=== PATIENT | female | born 1965 | race Caucasian/White ===

== ENCOUNTER 2023-06-26 19:05 | Emergency (ER) | payer BC, SELFPAY ==
--- NOTE | 2023-06-26 19:11 | ED.URI ---
HPI - URI/Sore Throat General Chief Complaint: Upper Respiratory Infection Stated Complaint: Sinus/Sore Throat Time Seen by Provider: 06/26/23 19:11 Source: patient and RN notes reviewed Mode of arrival: ambulatory Limitations: no limitations History of Present Illness HPI Narrative: 57 y/o female presented for c/o nonproductive cough for 5 days. States at onset of symptoms, she had sinus congestion and drainage which has since 'moved to the chest.' Reports cough is worse at night and heard crackles and wheezing. Took benzonatate from previous prescription and sleeping pill last night due to the cough. Denies sob, chest pain, palpitations, lethargy or fever. Smokes 1/2ppd. Has not tested for covid. MD elicited complaint: cough Related Data Allergies Allergy/AdvReac Type Severity Reaction Status Date / Time codeine Allergy Unknown Other Verified 06/26/23 19:11 Penicillins Allergy Unknown Other Verified 06/26/23 19:11 Sulfa (Sulfonamide Allergy Unknown Other Verified 06/26/23 19:11 Antibiotics) NFA Allergy Unknown Other Uncoded 06/26/23 19:11 Review of Systems Review of Systems: CONSTITUTIONAL: denies malaise, chills, sweats, fever EYES: Denies visual changes, redness, or discharge ENT: Denies rhinorrhea, congestion, sinus pain, otalgia, sore throat CARDIOVASCULAR: Denies chest pain, palpitations, edema RESPIRATORY: Reports cough Denies dyspnea GASTROINTESTINAL: Denies abdominal pain, nausea, vomiting, diarrhea SKIN: Denies rash or itching MUSCULOSKELETAL: Denies myalgia NEUROLOGIC: Denies headache PMFSH Social History Social History Smoking status: Current every day smoker Second hand tobacco smoke exposure: Yes Alcohol intake: never Exam Narrative: GENERAL: well-appearing HEAD: Normocephalic EYES: PERRLA, conjunctivae clear ENT: Mucous membranes moist. TM pearly soto with dull light reflex bilaterally; no tragal tenderness. Oropharynx erythematous without lesions or exudate, no drooling, no hoarseness, no trismus, uvula midline. No tripod positioning, muffled voice, soft palate or pharyngeal wall bulging NECK: Supple. No lymphadenopathy CHEST: Clear to auscultation, breath sounds equal. No wheezing, rhonchi, rales, or stridor. No respiratory distress, speaks in full sentences. Talkative. HEART: Regular rate and rhythm. SKIN: Warm, dry, no rash. NEURO: Alert and oriented x3. PSYCH: Normal mood and affect. Course Course Emergency Course: Patient is aware of diagnosis, understands and agrees to treatment plan. Anticipatory guidance given. Patient agrees to follow-up as directed and is aware of reasons to seek care at the emergency department. Portions of this record may have been created with voice recognition software Level of Care: Express Care Visit Vital Signs Vital signs: reviewed MDM - URI/Sore Throat MDM Narrative Medical decision making narrative: Discussed physical exam findings. Advised supportive measures and signs/symptoms to go to the ER. Pt is appropriate for outpt treatment and f/u. Differential Diagnosis Differential diagnosis: Likely upper respiratory infection, sinusitis, viral infection and bronchitis Discharge Plan Discharge Clinical Impression: Bronchitis Patient Disposition: Home, Self-Care Condition: Stable Instructions: Antibiotic Form, Acute Bronchitis (ED) Additional Instructions: Acute bronchitis can be contagious because it is usually caused by infection with a virus or bacteria. Take medication as directed For symptoms: Flonase spray and Zyrtec (or Claritin/Krista) if you have sinus congestion over the counter Cough syrup may cause drowsiness; avoid driving or take it at night time. Tylenol 1000mg every 8 hours as needed for pain benzonatate as needed for cough albuterol inhaler as needed shortness of breath/wheezing Follow up with your primary care provider as needed in 1 week Go to the ER for worsening symptoms or concerns Presc
== END 2023-06-26 19:24 | disposition home or self-care (01) ==
PROVIDERS: Emergency Provider Nurse Practitioner Family; PCP Family Medicine
DX: J40 Bronchitis, not specified as acute or chronic (principal); F17.200 Nicotine dependence, unspecified, uncomplicated
CPT/HCPCS: 99213; G0463

== ENCOUNTER 2023-07-08 08:30 | Emergency (ER) | payer BC, SELFPAY ==
--- NOTE | ~2023-07-08 | XR_ITS ---
Clinical Indication: Cough, shortness of breath PA and lateral views of the chest: Comparison: 08/22/2017 Findings: The lungs are clear, without evidence of focal consolidation or pleural effusion. Cardiome diastinal silhouette is within normal limits. Bones and soft tissues are unremarkable. Impression: Normal chest. Reviewed, dictated and finalized at location . Impression: Normal chest.
--- NOTE | 2023-07-08 08:39 | ED.URI ---
HPI - URI/Sore Throat General Chief Complaint: Upper Respiratory Infection Stated Complaint: Sinus Time Seen by Provider: 07/08/23 08:40 Source: patient Mode of arrival: ambulatory Limitations: no limitations History of Present Illness HPI Narrative: Adriana is a 57-year-old female patient presenting to the clinic today with complaints of sinus congestion, shortness of breath, productive cough with clear phlegm, back pain, and chest discomfort with inspiration x3 weeks. Her she reports she has a history of bronchitis. Finished a Z-Eleazar earlier this week for bronchitis. Was seen in the clinic on June 26 for similar symptoms. States that she is not feeling any better. Also reporting having some dark cloudy strong odor in her urine with some back pain. MD elicited complaint: sore throat and nasal congestion Related Data Home Medications Medication Instructions Recorded Confirmed albuterol sulfate 90 mcg/actuation 2 puff inhalation DIRECTED 07/08/23 07/08/23 aerosol inhaler Allergies Allergy/AdvReac Type Severity Reaction Status Date / Time codeine Allergy Unknown Other Verified 06/26/23 19:11 Penicillins Allergy Unknown Other Verified 06/26/23 19:11 Sulfa (Sulfonamide Allergy Unknown Other Verified 06/26/23 19:11 Antibiotics) NFA Allergy Unknown Other Uncoded 06/26/23 19:11 Review of Systems Review of Systems: Pertinent positives per HPI. Patient denies any fever, chills, rash, headache, visual changes, dizziness, chest pain, palpitations, nausea, vomiting, diarrhea, constipation, abdominal pain. PMFSH Social History Social History Smoking status: Current every day smoker Second hand tobacco smoke exposure: Yes Alcohol intake: never Comments At the time of my signature, I reviewed and agree with the nursing past medical, surgical, social, and family history. There is no relevant family history pertinent to the patient complaint. Exam Narrative: General: Well-developed, well nourished, in no apparent distress Head: Normocephalic, atraumatic Eyes: Pupils equally round and reactive to light bilaterally, EOM intact, sclera and conjunctive clear, no discharge, lids normal Ears: TMs intact and clear, ear canals clear, no drainage, grossly hearing normal. Nose: Nares patent, clear nasal discharge, moderate to severe inflammation with straei, maxillary sinus tenderness. Mouth: Oral pharynx without lesions or masses, good dentition, MMM. Neck: Supple, trachea midline, no enlargement of anterior or posterior cervical nodes, no thyroid masses or goiter palpable. Cardio: Regular rate and rhythm, s1 and s2 normal, no murmur appreciated. Resp: Clear to auscultation bilaterally, no rhonchi, rales, wheezing or rubs Abdomen: Soft, pliable, non-distended, mild tender to palpation over the lower abdomen, no organomegaly, mild bilateral CVAT tenderness. Course Course Emergency Course: Portions of this record may have been created with voice recognition software. Level of Care: Express Care Visit Vital Signs Vital signs: Vital signs reviewed MDM - URI/Sore Throat MDM Narrative Medical decision making narrative: At the time of visit patient is resting comfortably on the exam table. Urinalysis was performed and she is positive for leukocytes, protein, and blood. Chest x-ray was negative for any sign of pneumonia. I suspect patient has acute rhinosinusitis with UTI. Will send in prescription for cefdinir and prednisone. Supportive measures were discussed with the patient she voiced understanding discharge instructions and agrees to treatment plan. Differential Diagnosis Differential diagnosis: Likely upper respiratory infection, otitis media, sinusitis, viral infection, bronchitis, influenza, pharyngitis and other (UTI) Discharge Plan Discharge Clinical Impression: Acute bacterial rhinosinusitis UTI (urinary tract infection) Jung
[2023-07-08 08:50] VITALS: BP 134/54; PULSE 80; RESP 16; TEMP 36.9; O2SAT 97
== END 2023-07-08 09:35 | disposition home or self-care (01) ==
PROVIDERS: Emergency Provider Nurse Practitioner Family; PCP Family Medicine
DX: J01.90 Acute sinusitis, unspecified (principal); N30.01 Acute cystitis with hematuria; F17.200 Nicotine dependence, unspecified, uncomplicated
CPT/HCPCS: 71046; 81003; 87086; 87147; 87181; 87186; 99213; G0463

== ENCOUNTER 2023-08-22 08:42 | Emergency (ER) | payer BC, SELFPAY ==
[2023-08-22 09:06] VITALS: BP 126/56; PULSE 91; RESP 16; TEMP 36.9; O2SAT 99
--- NOTE | 2023-08-22 09:33 | ED.FEMALEGU ---
HPI - Female Genitourinary General Chief complaint: Urogenital-Female Stated complaint: urinary issue Time Seen by Provider: 08/22/23 09:25 Source: patient and RN notes reviewed Mode of arrival: ambulatory Limitations: no limitations History of Present Illness HPI Narrative: Patient presents today with a 3 day history of suprapubic pressure, dysuria, urgency, frequency. Currently rates her pain 2/10. She has been taking azo with some relief. History of interstitial cystitis. States when she gets an acute UTI Macrobid works the best for her. Related Data Allergies Allergy/AdvReac Type Severity Reaction Status Date / Time codeine Allergy Unknown Other Verified 08/22/23 09:12 Penicillins Allergy Unknown Other Verified 08/22/23 09:12 Sulfa (Sulfonamide Allergy Unknown Other Verified 08/22/23 09:12 Antibiotics) NFA Allergy Unknown Other Uncoded 08/22/23 09:12 Review of Systems Review of Systems: CONSTITUTIONAL: Denies body aches, fever, chills, or sweats. EYES: Denies visual changes, redness, or discharge. ENT: Denies rhinorrhea, congestion, sore throat, or otalgia. CARDIOVASCULAR: Denies chest pain, palpitations, or edema. RESPIRATORY: Denies cough or dyspnea. GASTROINTESTINAL: Denies abdominal pain, nausea, vomiting, or diarrhea. GENITOURINARY: + dysuria urgency, suprapubic pressure, frequency SKIN: Denies rash, itching, or wounds. MUSCULOSKELETAL: Denies back pain, joint pain, or myalgia. NEUROLOGIC: Denies headache, numbness, tingling, or weakness. PSYCH: Denies depression or anxiety. [facility] Past Medical History Medical History (Updated 08/22/23 @ 09:37 by Monika Mclain, [employer], ) Interstitial cystitis Social History Social History Smoking status: Current every day smoker Second hand tobacco smoke exposure: Yes Alcohol intake: never Exam Narrative: GENERAL: Well-appearing, well-nourished, and in no acute distress. HEAD: Normocephalic, atraumatic. EYES: EOMI. No redness or drainage. Conjunctivae normal. ENT: Mucous membranes pink and moist. NECK: Normal AROM. CHEST: No respiratory distress. Clear to auscultation. HEART: Regular rate and rhythm. No murmur appreciated. Normal peripheral pulses. ABDOMEN: Soft, nondistended, normal active bowel sounds. Mild suprapubic tenderness.-CVAT EXTREMITIES: Normal range of motion. No edema. SKIN: Warm, dry, no rash. Capillary refill normal. Normal skin turgor. NEURO: No focal deficits. Alert and oriented x3. Gait steady. PSYCH: Normal affect. No signs of depression or anxiety. Course Course Level of Care: Express Care Visit Vital Signs Vital signs: Vital Signs Temperature 98.5 F 08/22/23 09:06 Pulse Rate 91 08/22/23 09:06 Respiratory Rate 16 08/22/23 09:06 Blood Pressure 126/56 L 08/22/23 09:06 Pulse Oximetry 99 08/22/23 09:06 Oxygen Delivery Room Air 08/22/23 09:06 Temperature 98.5 F 08/22/23 09:06 Pulse Rate 91 08/22/23 09:06 Respiratory Rate 16 08/22/23 09:06 Blood Pressure 126/56 L 08/22/23 09:06 Pulse Oximetry 99 08/22/23 09:06 Oxygen Delivery Room Air 08/22/23 09:06 Reviewed. Pt has been instructed to follow up with her PCP regarding her elevated blood pressure today. MDM - Female Genitourinary MDM Narrative Medical decision making narrative: UA results are skewed by azo use. Discussed this with patient. Will treat her with a course of Macrobid. Culture pending. Anticipatory guidance given. Differential Diagnosis Differential diagnosis: Likely urinary tract infection, vaginitis, cystitis and other (Interstitial cystitis) Lab Data Attestation: I reviewed the patient's lab results. Labs: Urine Glucose Trace Reference Range: Negative Urine Bilirubin Negative Reference Range: Negative
== END 2023-08-22 09:40 | disposition home or self-care (01) ==
PROVIDERS: Emergency Provider Nurse Practitioner; PCP Internal Medicine
DX: N30.01 Acute cystitis with hematuria (principal); F17.200 Nicotine dependence, unspecified, uncomplicated
CPT/HCPCS: 81003; 87086; 87147; 87181; 87186; 99213; G0463